=== PATIENT | female | born 1955 | race Caucasian/White ===

== ENCOUNTER 2017-12-12 11:12 | Day surgery (SDC) | payer OTHER ==
[2017-12-12] MEDS ORDERED: PROPOFOL 80 ML (13:34)
== END 2017-12-12 15:17 | disposition home or self-care (01) ==
LOC: GIL 11:12
DX: Z12.11 Encounter for screening for malignant neoplasm of colon (principal); K25.9 Gastric ulcer, unspecified as acute or chronic, without hemorrhage or perforation; K44.9 Diaphragmatic hernia without obstruction or gangrene; I10 Essential (primary) hypertension
CPT/HCPCS: 43235